=== PATIENT | female | born 1945 | race Caucasian/White ===

== ENCOUNTER 2020-08-16 12:33 | Emergency (ER) | payer MEDICARE ==
[~2020-08-16] VITALS: Ht 162.6 cm; Wt 82.7 kg
--- NOTE | 2020-08-16 14:13 | NUR ---
Lamar from psychiatric social worker called stated will be down to see pt.
[2020-08-16 15:05] VITALS: BP 158/76
[2020-08-16] MEDS ORDERED: IBUP-1984 PO (15:17)
[2020-08-16] MEDS ORDERED: ondansetron 4mg rapidly disintigrating tab PO ONE (15:55)
[2020-08-16] MEDS ORDERED: ketorolac trometh. 30mg/ml inj. IM ONE (15:55)
[2020-08-16] MEDS ORDERED: acetaminophen 325mg tablet PO ONE (15:55)
[2020-08-16] MEDS ORDERED: HYDROcodone/acetaminophen 5mg/325mg tablet PO ONE (15:55)
[2020-08-16] MEDS ORDERED: HYDR-3965 PO (15:56)
[2020-08-16] MEDS ORDERED: ONDA4TAB6 PO (15:56)
== END 2020-08-16 16:44 | disposition home or self-care (01) ==
LOC: ER 12:33
DX: G89.29 Other chronic pain (principal); R53.1 Weakness; Z79.899 Other long term (current) drug therapy
CPT/HCPCS: 96372; 99284; J1885

== ENCOUNTER 2021-06-04 18:40 | Emergency (ER) | payer MEDICARE ==
[~2021-06-04] VITALS: Ht 170.2 cm; Wt 81.8 kg
[~2021-06-04 18:40] MED LIST: ONDA4TAB6 PO
--- NOTE | 2021-06-04 19:04 | NUR ---
PT ROOMED IN BED 15. ASSUMED CARE OF PT.
[2021-06-04 19:25] LABS: EOSINOPHILS # (AUTO) 0.5 X10'3 (0-0.9); HEMOGLOBIN 11.9 g/dl (12.0-16.0)
[2021-06-04 19:26] LABS: BASOPHILS % (AUTO) 0.2 % (0-1); EOSINOPHILS % (AUTO) 4.4 % (0-6); HEMATOCRIT 35.7 % (35.0-45.0); LYMPHOCYTES # (AUTO) 3.9 X10'3 (1.1-4.8); LYMPHOCYTES % (AUTO) 34.4 % (21-51); MEAN CORPUSCULAR HEMOGLOBIN 27.5 PG (27.0-31.0); MEAN CORPUSCULAR HGB CONC 33.4 g/dL (33.0-36.5); MEAN CORPUSCULAR VOLUME 82.1 FL (78-98); MEAN PLATELET VOLUME 8.8 FL (7.4-10.4); MONOCYTES # (AUTO) 0.7 X10'3 (0-0.9); MONOCYTES % (AUTO) 6.4 % (2-12); NEUTROPHILS # (AUTO) 6.2 X10'3 (1.8-7.7); NEUTROPHILS % (AUTO) 54.6 % (42-75); PLATELET COUNT 576 X10'3 (140-440); RED BLOOD COUNT 4.34 X10'6 (4.20-5.60); RED CELL DISTRIBUTION WIDTH 20.7 % (11.5-14.5); WHITE BLOOD COUNT 11.3 X10'3 (4.5-11.0)
[2021-06-04 19:37] LABS: ALANINE AMINOTRANSFERASE 26 U/L (12-78); ALBUMIN 3.6 G/DL (3.4-5.0); ALBUMIN/GLOBULIN RATIO 0.8 (1.1-1.5); ALKALINE PHOSPHATASE 161 IU/L (46-116); ANION GAP 9 (8-16); ASPARTATE AMINO TRANSFERASE 22 U/L (10-37); BILIRUBIN,TOTAL 0.3 MG/DL (0.1-1.0); BLOOD UREA NITROGEN 14 MG/DL (7-18); CALCIUM 9.3 MG/DL (8.5-10.1); CHLORIDE 101 MMOL/L (99-107); CREATININE 1.08 MG/DL (0.40-0.90); ETHANOL < 0.010 GM/DL (0.0-0.010); GLUCOSE 222 MG/DL (70-104); POTASSIUM 3.3 MMOL/L (3.5-5.1); SODIUM 137 MMOL/L (135-145); TOTAL CARBON DIOXIDE 27.4 MMOL/L (24-32); TOTAL PROTEIN 7.9 G/DL (6.4-8.2); eGFR 50 ML/MIN
[2021-06-04] MEDS ORDERED: potassium Cl 20 mEq SR tablet PO ONE (20:05)
[2021-06-04] MEDS ORDERED: normal saline 1000ml 1,000 ML IV ONE (20:05)
[2021-06-04] MEDS ORDERED: amox tr/potassium clavulanate 875/125mg TAB PO ONE (20:15)
[2021-06-04 20:24] LABS: CLARITY,URINE CLEAR (Clear); COLOR,URINE YELLOW (Yellow); GLUCOSE, URINE NEGATIVE (Neg); KETONES,URINE NEGATIVE (Neg); LEUKOCYTE ESTERASE ,URINE NEGATIVE (Neg); NITRITES, URINE NEGATIVE (Neg); OCCULT BLOOD,URINE NEGATIVE (Neg); PH,URINE 6.5 (4.8-8.0); PROTEIN,URINE 30 mg/dl (Neg); UROBILINOGEN,URINE 0.2 E.U/dL (0.2-1.0)
[2021-06-04 20:27] LABS: URINE AMPHETAMINE SCREEN NEGATIVE (Neg); URINE BARBITUATE SCREEN NEGATIVE (Neg); URINE BENZODIAZEPINES SCREEN NEGATIVE (Neg); URINE CANNABINOID SCREEN POSITIVE (Neg); URINE COCAINE SCREEN NEGATIVE (Neg); URINE METHADONE SCREEN NEGATIVE (Neg); URINE OPIATE SCREEN NEGATIVE (Neg); URINE PHENCYCLIDINE SCREEN NEGATIVE (Neg)
[2021-06-04 20:30] LABS: UA COLLECTION TYPE CLN CATCH MIDSTREAM
[2021-06-04 20:34] LABS: BACTERIA,URINE FEW /HPF (Neg); MUCUS STRANDS NONE SEEN /LPF (Neg); SQUAMOUS EPITHELIAL CELL,UR FEW /LPF (FEW); TRANSITIONAL EPI CELLS,URINE FEW /HPF; WBC,URINE 0-4 /HPF (0-4)
[2021-06-04 20:52] LABS: PLATELET ESTIMATE INCREASED
[2021-06-04 20:53] LABS: ANISOCYTOSIS 3+
[2021-06-04 20:54] LABS: LARGE PLATELETS FEW
[2021-06-04] MEDS ORDERED: AMOX-422 PO (21:01)
[2021-06-04] MEDS ORDERED: AZIT-31 PO (21:01)
[2021-06-04 21:22] VITALS: BP 199/84
== END 2021-06-04 21:25 | disposition home or self-care (01) ==
LOC: ER 18:41
DX: J18.9 Pneumonia, unspecified organism (principal); R53.1 Weakness; R53.83 Other fatigue; Z79.2 Long term (current) use of antibiotics; Z79.899 Other long term (current) drug therapy
CPT/HCPCS: 36415; 71045; 80053; 80305; 80320; 81001; 82140; 85008; 85025; 85651; 96360; 99284; J7030